=== PATIENT | female | born 1955 | race Caucasian/White ===

== ENCOUNTER → 2017-04-24 | Outpatient (CLI) | payer MEDICAID | END | disposition home or self-care (01) | LOC: RAD 16:24 | DX: M79.662 Pain in left lower leg (principal) ==

== ENCOUNTER 2017-07-14 13:53 | Emergency (ER) | payer MEDICAID ==
[~2017-07-14] VITALS: Ht 167.6 cm; Wt 109.0 kg
[2017-07-14 13:54] VITALS: BP 176/102
[2017-07-14 14:32] LABS: BASOPHILS # (AUTO) 0.04 x10^3/uL (0-0.1); BASOPHILS % (AUTO) 1 % (0-1); EOSINOPHILS # (AUTO) 0.14 x10^3/uL (0-0.4); EOSINOPHILS % (AUTO) 2 % (1-7); LYMPHOCYTES # (AUTO) 3.36 x10^3/uL (1-3.4); LYMPHOCYTES % (AUTO) 40 % (22-44); MD NO; MEAN CORPUSCULAR HEMOGLOBIN 30.1 pg (27.0-34.8); MEAN CORPUSCULAR HGB CONC 33.7 g/dL (32.4-35.8); MEAN CORPUSCULAR VOLUME 89.1 fL (80-100); MEAN PLATELET VOLUME 8.6 fL (7.4-10.4); MONOCYTES # (AUTO) 0.73 x10^3/uL (0.2-0.8); MONOCYTES % (AUTO) 9 % (2-9); NEUTROPHILS % (AUTO) 50 % (42-75); PLATELET COUNT 276 x10^3/uL (130-400); RED CELL DISTRIBUTION WIDTH 13.6 % (9.6-15.2)
[2017-07-14 14:43] LABS: ALANINE AMINOTRANSFERASE 25 U/L (12-78); ALBUMIN 3.9 g/dL (3.4-5.0); ANION GAP 6 mmol/L (5-15); CALCIUM 8.8 mg/dL (8.5-10.1); CHLORIDE 105 mmol/L (98-107); CREATININE 0.77 mg/dL (0.55-1.02)
[2017-07-14 14:47] LABS: ALKALINE PHOSPHATASE 80 U/L (45-117); BILIRUBIN,TOTAL 0.6 mg/dL (0.2-1.0); TOTAL PROTEIN 8.1 g/dL (6.4-8.2); TROPONIN I < 0.015 ng/mL (0.000-0.045)
== END 2017-07-14 17:36 | disposition home or self-care (01) ==
LOC: ED 17:18
DX: H81.11 Benign paroxysmal vertigo, right ear (principal); E78.00 Pure hypercholesterolemia, unspecified
CPT/HCPCS: 36415; 71045; 80053; 84484; 85025; 93005; 99285

== ENCOUNTER 2018-07-21 13:12 | Emergency (ER) | payer MEDICAID ==
[~2018-07-21] VITALS: Ht 167.6 cm; Wt 83.9 kg
[2018-07-21 13:53] LABS: MICROSCOPIC NOT IND
[2018-07-21 13:57] LABS: CULTURE INDICATED? NO
[2018-07-21 14:01] LABS: BASOPHILS # (AUTO) 0.04 x10^3/uL (0-0.1); BASOPHILS % (AUTO) 1 % (0-1); EOSINOPHILS # (AUTO) 0.08 x10^3/uL (0-0.4); EOSINOPHILS % (AUTO) 1 % (1-7); LYMPHOCYTES # (AUTO) 3.01 x10^3/uL (1-3.4); LYMPHOCYTES % (AUTO) 42 % (22-44); MD NO; MEAN CORPUSCULAR HEMOGLOBIN 29.9 pg (27.0-34.8); MEAN CORPUSCULAR HGB CONC 33.4 g/dL (32.4-35.8); MEAN CORPUSCULAR VOLUME 89.3 fL (80-100); MEAN PLATELET VOLUME 8.4 fL (7.4-10.4); MONOCYTES # (AUTO) 0.44 x10^3/uL (0.2-0.8); MONOCYTES % (AUTO) 6 % (2-9); NEUTROPHILS # (AUTO) 3.69 x10^3/uL (1.8-6.8); NEUTROPHILS % (AUTO) 51 % (42-75); PLATELET COUNT 264 x10^3/uL (130-400); RED BLOOD COUNT 4.91 x10^6/uL (3.82-5.3); RED CELL DISTRIBUTION WIDTH 13.1 % (9.6-15.2)
[2018-07-21 14:14] LABS: ALBUMIN 3.6 g/dL (3.4-5.0); ANION GAP 6 mmol/L (5-15); CHLORIDE 107 mmol/L (98-107)
[2018-07-21 14:17] LABS: ALANINE AMINOTRANSFERASE 26 U/L (12-78); ALKALINE PHOSPHATASE 73 U/L (45-117); BILIRUBIN,TOTAL 0.7 mg/dL (0.2-1.0); CREATININE 0.57 mg/dL (0.55-1.02); TOTAL PROTEIN 7.1 g/dL (6.4-8.2)
--- NOTE | 2018-07-21 16:28 | NUR ---
IT PROJECT LEAD: PT TO ROOM FROM [facility].
--- NOTE | 2018-07-21 18:13 | NUR ---
PATIENT IN ULTRASOUND.
[2018-07-21 18:51] VITALS: BP 143/72
--- NOTE | 2018-07-21 18:52 | NUR ---
Patient/Caregiver given discharge instructions and they have confirmed that they understand the instructions. Patient ambulatory with steady gait.
== END 2018-07-21 18:53 | disposition home or self-care (01) ==
LOC: ED 17:39
DX: S29.012A Strain of muscle and tendon of back wall of thorax, initial encounter (principal); E78.00 Pure hypercholesterolemia, unspecified; E78.5 Hyperlipidemia, unspecified; E07.9 Disorder of thyroid, unspecified; Z90.49 Acquired absence of other specified parts of digestive tract; Z90.710 Acquired absence of both cervix and uterus; X58.XXXA Exposure to other specified factors, initial encounter; Y93.89 Activity, other specified; Y92.89 Other specified places as the place of occurrence of the external cause; Y99.8 Other external cause status
CPT/HCPCS: 36415; 76770; 80053; 81003; 85025; 99284

== ENCOUNTER 2018-12-25 12:15 | Emergency (ER) | payer MEDICAID ==
[~2018-12-25] VITALS: Ht 165.1 cm; Wt 81.0 kg
--- NOTE | 2018-12-25 12:30 | NUR ---
PT ARRIVES TO ROOM 16 AMBULATORY WITH . PT DRESSED IN GOWN. PT C/O LEFT LOWER ABD PAIN AND RT FLANK PAIN FOR 4 DAYS. PT ALSO REPORT HX DIVERTICULITIS. VSS, PT AAO X 4, ROOM AIR, RESTING COMFORTABLY ON GURNEY WITH SIDERAILS X [address] CALL LIGHT AND BELONGINGS WITHIN REACH, AT BEDSIDE.
[2018-12-25 12:58] LABS: BASOPHILS # (AUTO) 0.02 x10^3/uL (0-0.1); BASOPHILS % (AUTO) 0 % (0-1); EOSINOPHILS # (AUTO) 0.08 x10^3/uL (0-0.4); EOSINOPHILS % (AUTO) 1 % (1-7); LYMPHOCYTES # (AUTO) 2.18 x10^3/uL (1-3.4); LYMPHOCYTES % (AUTO) 29 % (22-44); MD NO; MEAN CORPUSCULAR HEMOGLOBIN 29.7 pg (27.0-34.8); MEAN CORPUSCULAR HGB CONC 33.3 g/dL (32.4-35.8); MEAN CORPUSCULAR VOLUME 89.3 fL (80-100); MEAN PLATELET VOLUME 8.5 fL (7.4-10.4); MONOCYTES # (AUTO) 0.62 x10^3/uL (0.2-0.8); MONOCYTES % (AUTO) 8 % (2-9); NEUTROPHILS # (AUTO) 4.66 x10^3/uL (1.8-6.8); NEUTROPHILS % (AUTO) 62 % (42-75); PLATELET COUNT 272 x10^3/uL (130-400); RED BLOOD COUNT 4.82 x10^6/uL (3.82-5.3); RED CELL DISTRIBUTION WIDTH 13.1 % (9.6-15.2)
[2018-12-25 13:11] LABS: ALANINE AMINOTRANSFERASE 20 U/L (12-78); ALBUMIN 3.4 g/dL (3.4-5.0); ANION GAP 6 mmol/L (5-15); CALCIUM 9.1 mg/dL (8.5-10.1); CHLORIDE 108 mmol/L (98-107); CREATININE 0.61 mg/dL (0.55-1.02)
[2018-12-25 13:13] LABS: ALKALINE PHOSPHATASE 72 U/L (45-117); BILIRUBIN,TOTAL 0.6 mg/dL (0.2-1.0); TOTAL PROTEIN 7.7 g/dL (6.4-8.2)
[2018-12-25 13:44] VITALS: BP 122/68
[2018-12-25] MEDS ORDERED: LEVO125T5 PO (13:48)
[2018-12-25] MEDS ORDERED: SIMV40TA3 PO (13:48)
[2018-12-25] MEDS ORDERED: LOSA25TA25 PO (13:48)
[2018-12-25] MEDS ORDERED: PHEN37.53 PO (13:48)
[2018-12-25 14:03] LABS: CULTURE INDICATED? NO; MICROSCOPIC AUTO
--- NOTE | 2018-12-25 14:35 | NUR ---
Patient/Caregiver given discharge instructions and they have confirmed that they understand the instructions. Patient ambulatory with steady gait.
== END 2018-12-25 14:36 | disposition home or self-care (01) ==
LOC: ED 12:52
DX: K59.00 Constipation, unspecified (principal); I10 Essential (primary) hypertension; E78.00 Pure hypercholesterolemia, unspecified; E78.5 Hyperlipidemia, unspecified
CPT/HCPCS: 36415; 74021; 80053; 81001; 85025; 99284

== ENCOUNTER 2018-12-31 10:09 | Emergency (ER) | payer MEDICAID ==
[~2018-12-31] VITALS: Ht 165.1 cm; Wt 81.2 kg
[~2018-12-31 10:09] MED LIST: LEVO125T5 PO; LOSA25TA25 PO; PHEN37.53 PO; SIMV40TA3 PO
--- NOTE | 2018-12-31 10:32 | NUR ---
Pt bib p/v with right sided flank pain worse with movement but pt reports hx of diverticulitis with similar symtpoms about 3 years ago. Chart up for MD. Pt denies urinary symptoms, fevers/chills.
[2018-12-31 11:12] LABS: BASOPHILS # (AUTO) 0.04 x10^3/uL (0-0.1); BASOPHILS % (AUTO) 1 % (0-1); EOSINOPHILS % (AUTO) 1 % (1-7); LYMPHOCYTES # (AUTO) 2.49 x10^3/uL (1-3.4); LYMPHOCYTES % (AUTO) 36 % (22-44); MD NO; MEAN CORPUSCULAR HEMOGLOBIN 30.6 pg (27.0-34.8); MEAN CORPUSCULAR HGB CONC 33.5 g/dL (32.4-35.8); MEAN CORPUSCULAR VOLUME 91.4 fL (80-100); MEAN PLATELET VOLUME 8.1 fL (7.4-10.4); MONOCYTES # (AUTO) 0.46 x10^3/uL (0.2-0.8); MONOCYTES % (AUTO) 7 % (2-9); NEUTROPHILS # (AUTO) 3.88 x10^3/uL (1.8-6.8); NEUTROPHILS % (AUTO) 56 % (42-75); PLATELET COUNT 321 x10^3/uL (130-400); RED CELL DISTRIBUTION WIDTH 13.2 % (9.6-15.2)
[2018-12-31 11:22] LABS: ALBUMIN 3.5 g/dL (3.4-5.0); ANION GAP 5 mmol/L (5-15); CHLORIDE 108 mmol/L (98-107)
[2018-12-31 11:25] LABS: ALANINE AMINOTRANSFERASE 32 U/L (12-78); ALKALINE PHOSPHATASE 73 U/L (45-117); BILIRUBIN,TOTAL 1.1 mg/dL (0.2-1.0); CREATININE 0.61 mg/dL (0.55-1.02); TOTAL PROTEIN 7.5 g/dL (6.4-8.2)
[2018-12-31 11:28] LABS: MICROSCOPIC NOT IND
--- NOTE | 2018-12-31 11:36 | NUR ---
PT TO CT.
[2018-12-31 11:54] LABS: CULTURE INDICATED? NO
[2018-12-31] MEDS ORDERED: OMNIPAQUE 350 MG/ML, 100ML BOTTLE ONE (11:55)
[2018-12-31 11:58] VITALS: BP 130/65
--- NOTE | 2018-12-31 12:18 | NUR ---
CHART UP FOR MD RECHECK. PT AWARE.
== END 2018-12-31 12:46 | disposition home or self-care (01) ==
LOC: ED 12:16
DX: K57.32 Diverticulitis of large intestine without perforation or abscess without bleeding (principal); I10 Essential (primary) hypertension; E78.5 Hyperlipidemia, unspecified; Z90.49 Acquired absence of other specified parts of digestive tract; Z90.710 Acquired absence of both cervix and uterus; Z87.891 Personal history of nicotine dependence
CPT/HCPCS: 36415; 74177; 80053; 81003; 83690; 85025; 99284; Q9967

== ENCOUNTER 2019-01-19 11:09 | Emergency (ER) | payer MEDICAID ==
[~2019-01-19] VITALS: Ht 167.6 cm; Wt 87.9 kg
[2019-01-19 12:08] VITALS: BP 125/77
--- NOTE | 2019-01-19 12:08 | NUR ---
pt laying on gurney awake & calm, responds approp to staff, NAD, comfort measures provided, at BS, call light within reach.
--- NOTE | 2019-01-19 12:13 | NUR ---
pt to XR
--- NOTE | 2019-01-19 12:18 | NUR ---
pt returned from XR
--- NOTE | 2019-01-19 12:40 | NUR ---
Patient given discharge instructions and they have confirmed that they understand the instructions. Patient ambulatory with steady gait.
== END 2019-01-19 12:42 | disposition home or self-care (01) ==
LOC: ED 12:31
DX: R10.32 Left lower quadrant pain (principal); M79.18 Myalgia, other site; I10 Essential (primary) hypertension; E78.5 Hyperlipidemia, unspecified; Z90.49 Acquired absence of other specified parts of digestive tract; Z90.710 Acquired absence of both cervix and uterus; Z87.891 Personal history of nicotine dependence; Z88.5 Allergy status to narcotic agent
CPT/HCPCS: 74018; 99283